=== PATIENT | male | born 1975 | race African-American/Black ===

== ENCOUNTER 2023-08-14 11:11 | Emergency (ER) | payer SELFPAY ==
[2023-08-14 11:15] VITALS: BP 127/71; PULSE 88; RESP 18; TEMP 36.3; O2SAT 100
--- NOTE | 2023-08-14 14:34 | ED.ALLEREA ---
HPI - Allergic Reaction General Chief complaint: Allergic Reaction Stated complaint: allergic reaction Time Seen by Provider: 08/14/23 13:38 History of Present Illness HPI narrative: Patient is a 47-year-old male who presents ER with concerns for allergic reaction. He purchased a new cutler oil and conditioner and applied it last night. He has since developed a red nests to the skin and swelling all throughout the cutler. He is weeping fluid. No fevers chills or sweats. No difficulty breathing or swallowing. He reports it is intensely pruritic Review of Systems Constitutional: Constitutional: Denies chills and Denies fever(s) ENT: Denies dysphagia, Denies nasal congestion and Denies sore throat Integumentary/Breasts: Skin/Breast: Reports pruritus, Reports erythema and Reports rash PMFSH Past Medical History Medical History (Updated 08/14/23 @ 18:37 by Kishor Sagastume MD) Healthy adult male Surgical History Surgical History (Updated 08/14/23 @ 18:37 by Kishor Sagastume MD) No history of previous surgery Exam Narrative: GENERAL: Well-appearing, well-nourished, and in no acute distress. HEAD: Normocephalic, atraumatic. ENT: Mucous membranes moist. NECK: Supple. SKIN: Warm, dry, redness and induration of the cheeks and chin along the cutler line. There is weeping noted. NEURO: Alert and oriented x3. PSYCH: Normal mood and affect. Course Course Emergency Course: Discussed treatment for contact dermatitis. Will place on oral prednisone. He may also take Benadryl and [id number] aloe vera gel. Patient has washed his cutler thoroughly. Vital Signs Vital signs: Vital Signs Temperature 97.3 F L 08/14/23 11:15 Pulse Rate 88 08/14/23 11:15 Respiratory Rate 18 08/14/23 11:15 Blood Pressure 127/71 08/14/23 11:15 Pulse Oximetry 100 08/14/23 11:15 Oxygen Delivery Room Air 08/14/23 11:15 Temperature 97.3 F L 08/14/23 11:15 Pulse Rate 88 08/14/23 11:15 Respiratory Rate 18 08/14/23 11:15 Blood Pressure 127/71 08/14/23 11:15 Pulse Oximetry 100 08/14/23 11:15 Oxygen Delivery Room Air 08/14/23 11:15 Discharge Plan Discharge Clinical Impression: Contact dermatitis Patient Disposition: Home, Self-Care Condition: Stable Instructions: Contact Dermatitis (ED) Additional Instructions: Return the ER if you have worsening pain, you cannot keep down food/water/medication, you have additional concerns. You may try some topical aloe gel in addition to the oral steroids. Do not apply any more conditioner to your face. Prescriptions: New prednisone 50 mg tablet 50 mg PO DAILY Qty: 7 0RF Follow-up/Referrals: PHYSICIAN NOT ON STAFF,NONSTAFF [Primary Care Provider] -
== END 2023-08-14 14:50 | disposition home or self-care (01) ==
PROVIDERS: Emergency Provider Emergency Medicine
DX: L23.89 Allergic contact dermatitis due to other agents (principal)
CPT/HCPCS: 99283